=== PATIENT | female | born 2000 | race Two or more races ===

== ENCOUNTER 2024-04-07 11:09 | Observation (INO) | payer OTHER ==
[~2024-04-07] VITALS: Ht 30.5 cm; Wt 0.5 kg
[2024-04-07] MEDS ORDERED: SULFAMETHOX W/TRIMETH(800/160MG) DS TAB PO ONE (14:00)
[2024-04-07] MEDS: LACTATED RINGER'S 1,000 ML IV ONE (14:12)
[2024-04-07 14:18] VITALS: TEMP 101.6
[2024-04-07] MEDS: ACETAMINOPHEN 500 MG TAB PO ONE (14:18)
[2024-04-07 15:08] LABS: Basophils # (auto) 0 10 ^3/uL (0-0.2); Basophils % (auto) 0.2 % (0.0-2.0); Eosinophils # (auto) 0 10 ^3/uL (0-0.8); Eosinophils % (auto) 0.5 % (0.0-7.0); Hematocrit 30.6 % (36.0-46.0); Hemoglobin 10.4 g/dL (12.2-16.2); Lymphocytes # (auto) 0.7 10 ^3/uL (0.4-5.4); Lymphocytes % (auto) 27.4 % (10.0-50.0); Mean Corpuscular Hemoglobin 27.7 pg (28.0-32.0); Mean Corpuscular Hgb Conc. 34.2 g/dL (32.0-36.0); Mean Corpuscular Volume 81.1 fL (80.0-100.0); Monocytes # (auto) 0.2 10 ^3/uL (0-1.3); Monocytes % (auto) 9.6 % (0.0-12.0); Neutrophils # (auto) 1.5 10 ^3/uL (1.6-8.6); Neutrophils % (auto) 62.3 % (37.0-80.0); Nucleated Red Blood Cells % 0.5 %; Red Blood Cells 3.77 10^6/uL (4.0-5.20); Red Cell Distribution Width 13.4 % (11.8-14.3); White Blood Cell 2.4 10^3/uL (4.4-10.8)
[2024-04-07 15:09] LABS: Urine Bacteria FEW /hpf (None Seen); Urine Blood Negative /uL (Negative); Urine Clarity Turbid (Clear); Urine Color Yellow (Yellow); Urine Mucus FEW (None Seen); Urine Protein, UAD 1+ (Negative); Urine Specific Gravity 1.024 (1.001-1.035); Urine Urobilinogen 8 mg/dL (Negative); Urine WBC 9 /hpf (0 - 5); Urine pH 6.5 (5.0-9.0)
[2024-04-07 15:10] LABS: COVID19 ANTIGEN SOFIA FIA NEGATIVE (NEGATIVE); Rapid Influenza A Negative (Negative); Rapid Influenza B Negative (Negative)
[2024-04-07 15:15] LABS: Alanine Aminotransferase 22 U/L (7-40); Alkaline Phosphatase 94 U/L (46-116); Anion Gap 8 (5-15); Aspartate Aminotransferase 39 U/L (13-40); Calcium 8.8 mg/dL (8.7-10.4); Carbon Dioxide 24 mmol/L (20-30); Chloride 104 mmol/L (98-107); Glucose 74 mg/dL (74-106); Potassium 2.9 mmol/L (3.5-5.1); Sodium 136 mmol/L (136-145)
[2024-04-07 15:16] LABS: Albumin 3.5 g/dL (3.2-4.8); Bilirubin, Total 0.5 mg/dL (0.2-1.0); Total Protein 6.5 g/dL (5.7-8.2)
[2024-04-07 15:23] LABS: BUN/Creatinine Ratio 13.5 (10.0-20.0); Blood Urea Nitrogen < 5 mg/dL (9-23)
[2024-04-07] MEDS ORDERED: PREN-96 PO (16:23)
== END 2024-04-07 18:01 | disposition home or self-care (01) ==
LOC: UNDOADMOB 11:09 → LDRP 11:09
PROVIDERS: ADMIT Obstetrics & Gynecology; ATTEND Obstetrics & Gynecology
DX: O23.42 Unspecified infection of urinary tract in pregnancy, second trimester (principal); O99.282 Endocrine, nutritional and metabolic diseases complicating pregnancy, second trimester; E86.0 Dehydration; Z3A.21 21 weeks gestation of pregnancy; Z20.822 Contact with and (suspected) exposure to COVID-19
CPT/HCPCS: 36415; 59025; 76775; 80053; 81001; 85025; 87086; 87426; 87804; 94760; 96360; G0378